=== PATIENT | female | born 1995 | race Caucasian/White ===

== ENCOUNTER 2017-05-10 20:36 | Emergency (ER) | payer OTHER ==
[~2017-05-10] VITALS: Ht 165.1 cm; Wt 54.4 kg
[2017-05-10] MEDS ORDERED: NOHOMEMEDICATIONS (20:52)
[2017-05-10] MEDS ORDERED: BACTRIM DS TAB1 EACH PO (21:09)
[2017-05-10] MEDS ORDERED: IBUPROFEN 800800 M1 PO (21:10)
== END 2017-05-10 21:22 | disposition home or self-care (01) ==
LOC: ER 20:36
DX: L02.411 Cutaneous abscess of right axilla (principal); Z91.040 Latex allergy status

== ENCOUNTER 2017-05-13 16:14 | Emergency (ER) | payer OTHER ==
[~2017-05-13] VITALS: Ht 157.5 cm; Wt 54.4 kg
[~2017-05-13 16:14] MED LIST: BACTRIM DS TAB1 EACH PO; IBUPROFEN 800800 M1 PO; NOHOMEMEDICATIONS
== END 2017-05-13 16:50 | disposition home or self-care (01) ==
LOC: ER 16:14
DX: L02.411 Cutaneous abscess of right axilla (principal); Z91.040 Latex allergy status

== ENCOUNTER 2018-03-10 16:41 | Emergency (ER) | payer OTHER ==
[~2018-03-10] VITALS: Ht 162.6 cm; Wt 52.2 kg
[2018-03-10 16:42] VITALS: BP 122/72
[2018-03-10] MEDS ORDERED: PENICILLIN V P500 MG PO (17:18)
[2018-03-10] MEDS ORDERED: MOBIC15 MG PO (17:18)
[2018-03-10] MEDS ORDERED: ULTRAM 50MG TAB50 MG PO (17:18)
== END 2018-03-10 17:58 | disposition home or self-care (01) ==
LOC: ER 16:41
DX: K02.9 Dental caries, unspecified (principal); Z91.040 Latex allergy status

== ENCOUNTER 2018-08-11 17:26 | Emergency (ER) | payer OTHER ==
[~2018-08-11] VITALS: Ht 165.1 cm; Wt 52.2 kg
[~2018-08-11 17:26] MED LIST changes: +MOBIC15 MG PO; +PENICILLIN V P500 MG PO; +ULTRAM 50MG TAB50 MG PO
[2018-08-11 17:27] VITALS: BP 120/84
[2018-08-11] MEDS ORDERED: IBUPROFEN 600600 M1 PO (18:02)
[2018-08-11] MEDS ORDERED: ULTRAM 50MG TAB50 MG PO (18:02)
== END 2018-08-11 18:29 | disposition home or self-care (01) ==
LOC: ER 17:26
DX: K05.30 Chronic periodontitis, unspecified (principal); Z91.040 Latex allergy status

== ENCOUNTER 2020-01-07 08:37 | Emergency (ER) | payer BC, OTHER ==
[~2020-01-07] VITALS: Ht 165.1 cm; Wt 47.2 kg
[~2020-01-07 08:37] MED LIST changes: +IBUPROFEN 600600 M1 PO
[2020-01-07 09:33] LABS: ABSOLUTE NEUTROPHILS 3.9 thou/uL (1.4-8.2); BASOPHILS 0.4 % (0.0-2.0); EOSINOPHILS 0.4 % (0.0-3.0); HEMOGLOBIN 13.7 gm/dL (12.0-15.0); LYMPHOCYTES 31.5 % (24.0-44.0); MCH 26.3 pg (26.0-34.0); MCHC 33.4 g/dL (28.0-37.0); MCV 78.9 fL (80.0-100.0); MONOCYTES 11.1 % (1.0-8.0); PLATELET COUNT 292 thou/uL (150-400); POLYS 56.6 % (36.0-66.0); RBC 5.19 mil/uL (4.20-5.00); RDW 18.8 % (10.5-14.5); WBC 6.9 thou/uL (4.0-11.0)
[2020-01-07 09:41] LABS: CALCIUM 9.1 mg/dL (8.5-10.1); CREATININE 0.8 mg/dL (0.6-1.0); POTASSIUM 3.2 mmol/L (3.5-5.1)
[2020-01-07 09:48] LABS: ALBUMIN 4.7 g/dL (3.4-5.0); TOTAL BILIRUBIN 0.6 mg/dL (0.2-1.0); TOTAL PROTEIN 8.8 g/dL (6.4-8.2)
[2020-01-07 10:26] LABS: URINE BLOOD NEGATIVE (Negative); URINE CLARITY CLEAR; URINE COLOR YELLOW; URINE GLUCOSE-RANDOM* NEGATIVE (Negative); URINE KETONES 1+ (Negative); URINE LEUKOCYTES-REFLEX NEGATIVE (Negative); URINE NITRITE-REFLEX NEGATIVE (Negative); URINE PROTEIN (DIPSTICK) 2+ (Negative); URINE SPECIFIC GRAVITY >= 1.030 (1.005-1.035)
[2020-01-07 10:30] LABS: ICTOTEST (BILI CONFIRMATORY) Negative (Negative); URINE BILIRUBIN NEGATIVE (Negative)
[2020-01-07 10:34] LABS: BACTERIA-REFLEX 1-9 Few /HPF (None Seen); CASTS None Seen /LPF (None Seen); CRYSTALS None Seen /LPF (None Seen); MUCUS 0-3 Light strn/LPF (None Seen); SQUAMOUS >10 Many /LPF (0-3); URINE RBC None Seen /HPF (0-2); URINE WBC-REFLEX 0-5 Rare /HPF (0-5)
[2020-01-07] MEDS ORDERED: ZOFRAN ODT4 MG PO (11:00)
[2020-01-07 11:20] VITALS: BP 122/56
[2020-01-07 11:58] LABS: ANISOCYTOSIS 1+; PLATELET ESTIMATE NORMAL
== END 2020-01-07 11:22 | disposition home or self-care (01) ==
LOC: ER 08:37
PROVIDERS: Emergency Medicine
DX: K52.9 Noninfective gastroenteritis and colitis, unspecified (principal); F17.210 Nicotine dependence, cigarettes, uncomplicated; Z91.040 Latex allergy status

== ENCOUNTER 2020-01-22 10:01 | Emergency (ER) | payer BC, OTHER ==
[~2020-01-22] VITALS: Ht 165.1 cm; Wt 48.1 kg
[~2020-01-22 10:01] MED LIST changes: +ZOFRAN ODT4 MG PO
[2020-01-22 10:21] LABS: URINE BILIRUBIN NEGATIVE (Negative); URINE BLOOD NEGATIVE (Negative); URINE CLARITY CLEAR; URINE COLOR YELLOW; URINE GLUCOSE-RANDOM* NEGATIVE (Negative); URINE KETONES NEGATIVE (Negative); URINE LEUKOCYTES-REFLEX NEGATIVE (Negative); URINE NITRITE-REFLEX NEGATIVE (Negative); URINE PROTEIN (DIPSTICK) NEGATIVE (Negative); URINE UROBILINOGEN 0.2 E.U./dl (0.2-1.0)
[2020-01-22 10:51] LABS: ABSOLUTE NEUTROPHILS 4.5 thou/uL (1.4-8.2); BASOPHILS 0.3 % (0.0-2.0); EOSINOPHILS 0.8 % (0.0-3.0); HEMATOCRIT 42.1 % (37.0-47.0); HEMOGLOBIN 13.9 gm/dL (12.0-15.0); LYMPHOCYTES 28.3 % (24.0-44.0); MCH 26.3 pg (26.0-34.0); MCHC 32.9 g/dL (28.0-37.0); MONOCYTES 8.5 % (1.0-8.0); PLATELET COUNT 257 thou/uL (150-400); POLYS 62.1 % (36.0-66.0); RBC 5.27 mil/uL (4.20-5.00); WBC 7.3 thou/uL (4.0-11.0)
[2020-01-22 11:08] LABS: CALCIUM 9.1 mg/dL (8.5-10.1); CREATININE 0.7 mg/dL (0.6-1.0); POTASSIUM 3.6 mmol/L (3.5-5.1)
[2020-01-22 11:14] LABS: ALBUMIN 4.4 g/dL (3.4-5.0); TOTAL BILIRUBIN 0.4 mg/dL (0.2-1.0); TOTAL PROTEIN 8.3 g/dL (6.4-8.2)
[2020-01-22 12:50] VITALS: BP 134/74
[2020-01-22 13:17] LABS: ANISOCYTOSIS 1+
== END 2020-01-22 12:50 | disposition home or self-care (01) ==
LOC: ER 10:01
PROVIDERS: Emergency Medicine
DX: N83.202 Unspecified ovarian cyst, left side (principal); K59.00 Constipation, unspecified; F17.210 Nicotine dependence, cigarettes, uncomplicated; Z91.041 Radiographic dye allergy status

== ENCOUNTER 2020-09-28 15:33 | Emergency (ER) | payer BC, OTHER ==
[~2020-09-28] VITALS: Ht 162.6 cm; Wt 49.9 kg
[2020-09-28 16:36] LABS: BASOPHILS 0.3 % (0.0-2.0); EOSINOPHILS 1.1 % (0.0-3.0); HEMOGLOBIN 9.8 gm/dL (12.0-15.0); LYMPHOCYTES 34.8 % (24.0-44.0); MCH 21.4 pg (26.0-34.0); MCHC 31.6 g/dL (28.0-37.0); MCV 67.6 fL (80.0-100.0); MONOCYTES 8.6 % (1.0-8.0); PLATELET COUNT 279 thou/uL (150-400); POLYS 55.2 % (36.0-66.0); RBC 4.59 mil/uL (4.20-5.00); RDW 19.9 % (10.5-14.5); WBC 7.3 thou/uL (4.0-11.0)
[2020-09-28 16:38] LABS: URINE BILIRUBIN NEGATIVE (Negative); URINE BLOOD NEGATIVE (Negative); URINE CLARITY CLEAR; URINE COLOR YELLOW; URINE GLUCOSE-RANDOM* NEGATIVE (Negative); URINE KETONES NEGATIVE (Negative); URINE LEUKOCYTES-REFLEX NEGATIVE (Negative); URINE NITRITE-REFLEX NEGATIVE (Negative); URINE PROTEIN (DIPSTICK) NEGATIVE (Negative); URINE UROBILINOGEN 0.2 E.U./dl (0.2-1.0)
[2020-09-28 16:51] LABS: CALCIUM 8.3 mg/dL (8.5-10.1); CREATININE 0.8 mg/dL (0.6-1.0); POTASSIUM 3.4 mmol/L (3.5-5.1)
[2020-09-28 17:45] VITALS: BP 120/53
[2020-09-28 18:13] LABS: ANISOCYTOSIS 1+; HYPOCHROMASIA 1+; MICROCYTES 1+
--- NOTE | 2020-09-29 08:23 | EKG ---
[address] [address] ELECTROCARDIOGRAM REPORT Name: SANDRO CAMPOS [facility] [id number] Admission: 09/28/20 Attend Phys: Discharge: 09/28/20 Date of : [birth year] Report #: [id number] [facility] ED Test Date: 2020-09-28 Test Time: 15:51:30 Pat Name: SANDRO CAMPOS Department: Room: Gender: F Manager Medicaid: : 1995 Requested By: Edd Burris Order Number: [id number] MD: Gonzalez Montelongo Measurements Intervals [place] Rate: 74 P: 72 AL: 160 QRS: 53 QRSD: 95 T: 13 QT: 384 QTc: 426 Interpretive Statements Sinus rhythm No previous ECG available for comparison Electronically Signed On 09-29-2020 7:02:19 CDT by Gonzalez Montelongo [email or web address] <ELECTRONICALLY SIGNED> By: Gonzalez Montelongo MD, [facility] 09/29/20 0702 [id number] Gonzalez [email or web address] MD, FACC /EPI
== END 2020-09-28 17:45 | disposition home or self-care (01) ==
LOC: ER 15:33
PROVIDERS: Nurse Practitioner
DX: R55 Syncope and collapse (principal); R21 Rash and other nonspecific skin eruption; F17.210 Nicotine dependence, cigarettes, uncomplicated; Z91.040 Latex allergy status